=== PATIENT | female | born 1980 | race Caucasian/White ===

== ENCOUNTER 2018-10-19 06:03 | Day surgery (SDC) | payer OTHER ==
[~2018-10-19] VITALS: Ht 160 cm; Wt 93.8 kg
[2018-10-19] VITALS (17 sets, daily range): BP systolic 100–140; BP diastolic 49–79; PULSE 67–108; RESP 16–36; Ht 160 cm; Wt 93.8 kg
[~2018-10-19 06:03] MED LIST: AMLO-147 PO; BENA40TA54 PO; FERR256T PO; LACTATED RINGER'S 1,000 ML IV* ONE; METF850T13 PO
--- NOTE | 2018-10-19 06:41 | HPN ---
Date/Time of Note Date/Time of Note DATE: 10/19/18 TIME: 06:40 Interval H&P Admission Note Pt. seen H&P reviewed: No system changes MIREILLE MARINELLI MD Oct 19, 2018 06:41
[2018-10-19] MEDS ORDERED: GLIM1TAB2 ORAL (07:10)
[2018-10-19] MEDS ORDERED: AMLO-145 ORAL (07:10)
[2018-10-19] MEDS ORDERED: LISI-313 ORAL (07:10)
--- NOTE | 2018-10-19 07:32 | PREAC ---
Date/Time of Note Date/Time of Note DATE: 10/19/18 TIME: 07:31 Anesthesia Eval and Record Evaluation Time Pre-Procedure Interview DATE: 10/19/18 TIME: 07:31 Age 38 Sex female NPO: 8 hrs Preoperative diagnosis vaginal bleeding Planned procedure D&C Past Medical History Past Medical History: Includes Cardio: HTN, Dyslipidemia Endo: Diabetes GI: Obesity Surgery & Anesthesia Issues No known issue Meds Anticoagulation: No Beta Cecilia within 24 hr: No Reason Beta Cecilia not given: Pt. not on B-Cecilia Reported Medications Glimepiride* (Glimepiride*) 1 Mg Tablet, 1 TAB ORAL DAILY 10/19/18 Lisinopril* (Lisinopril*) 5 Mg Tablet, 1 TAB ORAL DAILY 10/19/18 Amlodipine Besylate* (Amlodipine Besylate*) 5 Mg Tablet, 1 TAB ORAL DAILY 10/19/18 Metformin Hcl* (Metformin Hcl*) 850 Mg Tablet, 850 MG PO BID 07/22/13 Discontinued Reported Medications Amlodipine Besylate* (Amlodipine Besylate*) 10 Mg Tablet, 10 MG PO DAILY 07/22/13 Benazepril Hcl* (Lotensin*) 40 Mg Tablet, 10 MG PO DAILY 07/22/13 Ferrous Gluconate (Iron) 256 Mg Tablet, 256 MG PO DAILY 07/22/13 Current Medications Lactated Ringer's 1,000 ml @ 125 mls/hr Q8H ONCE IV* Last administered on 10/19/18at 06:00; Admin Dose 125 MLS/HR; Start 10/19/18 at 06:00; Stop 10/19/18 at 13:59 Meds reviewed: Yes Allergies Coded Allergies: No Known Allergies (Verified Allergy, Unknown, 10/19/18) Allergies Reviewed: Yes Labs/Studies Labs Reviewed: Reviewed by anesthesiologist test: Negative Studies: ECG, Stress test, 2D Echo Pre-procedure Exam Last vitals Vital Signs Date Temp Pulse Resp B/P (MAP) Pulse Ox O2 O2 Flow FiO2 Time Delivery Rate 10/19/18 97.4 67 18 138/79 96 Room Air 07:23 (98) Airway: Adequate mouth opening, Adequate thyromental dist Mallampati: Mallampati II Teeth: Normal Lung: Normal Heart: Normal ASA Physical Status ASA physical status: 3 Emergency: None Planned Anesthetic General/MAC: ETT Pre-operative Attestations Prior to commencing anesthesia and surgery, the patient was re-evaluated, there was verification of: *The patient's identity *The results of appropriate recent lab work and preoperative vital signs *The above evaluation not changing prior to induction *Anesthetic plan, risk benefits, alternative and complications discussed with patient/family; questions answered; patient/family understands, accepts and wishes to proceed. BOSSMAN GIL Oct 19, 2018 07:32
[2018-10-19] MEDS ORDERED: FENTAnyl 50 MCG/ML VIAL ONE (07:44)
[2018-10-19] MEDS ORDERED: ROCURONIUM 50 MG INJ ONE (07:58)
[2018-10-19] MEDS ORDERED: SUCCINYLCHOLINE CHLORIDE 100 MG/5 ML SYG IV ONE (07:58)
[2018-10-19] MEDS ORDERED: CEFAZOLIN 1 GM INJ ONE (07:58)
[2018-10-19] MEDS ORDERED: LIDOCAINE 100 MG SYRINGE ONE (07:58)
[2018-10-19] MEDS ORDERED: PROPOFOL 20 ML ONE (07:58)
[2018-10-19] MEDS ORDERED: ALBUTEROL 0.083% (NEB) 2.5 MG/3 ML AMP HHN PRN (08:00)
[2018-10-19] MEDS ORDERED: METOCLOPRAMIDE 10 MG INJ IV PRN (08:00)
[2018-10-19] MEDS ORDERED: FENTAnyl 50 MCG/ML VIAL IV PRN ×2 (08:00)
[2018-10-19] MEDS ORDERED: LABETALOL HCL 20MG INJ IV PRN (08:00)
[2018-10-19] MEDS ORDERED: DIPHENHYDRAMINE 50 MG INJ IV PRN (08:00)
[2018-10-19] MEDS ORDERED: HYDROmorphONE 1 MG/5 ML IV SYRINGE IV PRN ×3 (08:00)
[2018-10-19] MEDS ORDERED: hydrALAzine 20 MG INJ IV PRN (08:00)
[2018-10-19] MEDS ORDERED: ONDANSETRON 4 MG INJ IV PRN (08:00)
[2018-10-19] MEDS ORDERED: SUGAMMADEX SODIUM 200 MG/2 ML VIAL IV ONE (08:00)
[2018-10-19] MEDS ORDERED: MEPERIDINE 25 MG INJ IV PRN (08:00)
--- NOTE | 2018-10-19 08:33 | SIPON ---
Date/Time of Note Date/Time of Note DATE: 10/19/18 TIME: 08:29 Operative Report Preoperative Diagnosis menometrorrhagia s/p endometrial ablation (thermabaloon,6yrs ago) Postoperative Diagnosis uterine adhesions see pathologic report Operation/Procedure Performed hysteroscopic endometrial shaving [facility] Surgeon see signature line property assistant noel from [employer] Anesthesia: general Estimated blood loss: minimal Transfusion Required none Specimen endometrial curettings endocervical curettings Grafts/Implants none Complications none MIREILLE MARINELLI MD Oct 19, 2018 08:33
--- NOTE | 2018-10-19 08:34 | PD.PPDC ---
[employer] DESIGNER Discharge Instruction Diagnosis [id number] Final Diagnosis: Arpor1y menometrorrhagia Condition [id number] Patient Condition: [id number] Stable Diet [id number] Diet: Vhqac4p Special Diet (diabetic diet) Activity/Restrictions [id number] Activity: Ccude2h May Shower [id number] Restrictions: Mkivj7m No Sexual Activity Nothing in the Vagina No [place] No Tampons, douche Follow-up Follow-up with Physician: 2, Week/Weeks Return to clinic for [id number] [employer]ER Instructions: Vyhsd3m Fever greater than 101 Chills Worsening abdominal pain Excessive Vaginal Bleeding More than 2 pads per hour Unable to tolerate diet MIREILLE MARINELLI MD Oct 19, 2018 08:34
--- NOTE | 2018-10-19 09:11 | OPR ---
DATE OF OPERATION: 10/19/2018 PREOPERATIVE DIAGNOSES: 1. Menometrorrhagia. 2. Endometrial ablation, thermal balloon 6 years ago. POSTOPERATIVE DIAGNOSES: 1. See pathological report. 2. Uterine adhesions, most likely secondary to the endometrial ablation. OPERATION PERFORMED: Hysteroscopic endometrial shavings and endocervical curettage and traditional e ndometrial curettage due to the fast fluid loss. ANESTHESIA: General. ANESTHESIOLOGIST: Dr. Mendoza. SURGEON: Pastora Marinelli MD SLEEP TECH: Huang from [employer]. ESTIMATED BLOOD LOSS: Negligible. PROCEDURE: Under the proper induction of general anesthesia, the patient was placed in dorsal lithot raj position. Perineal area and vagina wall was prepped and draped in usual aseptic manner. On insp ection, external genitalia revealed no gross abnormality. Bimanual examination was inadequate due to the body habitus. Weighted speculum was introduced into the vagina. There is a third degree of rec tocele noted. The cervix identified which was parous appearing. Anterior lip of the cervix was gras ped with a single tooth tenaculum and cavity sounded, which was 9 cm in depth. Endocervical curettag e was performed with obtaining scanty tissue which was sent to pathology. After the cervix dilated t o 7 and hysteroscope, which was already prepared and primed, everything in usual fashion, which was i ntroduced into the uterine cavity and gradually and to reach the point that was visualizing the adhes ion in the middle appeared to be like a septum is in between the cavity and the right ostium somehow was very darkened and not clearly seen, the ostium on both sides. After the adequate visualization t he soft tissue shaver was introduced through the hysteroscope, and was able to remove the septal appe aring adhesion in the mid cavity and because of the fast fluid loss, reaching 1600 without even doing the shaving and endometrial shaving was done in all directions in usual fashion and this was removed , and it was replaced with traditional uterine curettage in order to prevent further fluid loss. We rescoped adhesion in the mid cavity. It was removed, most of tissue was removed and all the tissue was removed and the cavity was clear. The fluid loss is 2260 which is rather high in this kind of pr ocedure. Estimated blood loss was negligible. All the instruments were removed from the operative f ield and sponge count taken which was correct. The patient withstood the procedure well and was sent to the recovery room in stable condition. ADDENDUM: Prior to the procedure, the bladder was emptied using a Pittman catheter and 2 gram Ancef was given. Dictated By: PASTORA HAJI/SCOTTIE Conf#: [id number] DID#: [id number]
--- NOTE | 2018-10-19 09:41 | PAC ---
Date/Time of Note Date/Time of Note DATE: 10/19/18 TIME: 09:40 Post-Anesthesia Notes Post-Anesthesia Note Last documented vital signs Vital Signs Date Temp Pulse Resp B/P (MAP) Pulse Ox O2 O2 Flow FiO2 Time Delivery Rate 10/19/18 97.4 67 18 138/79 96 Room Air 07:23 (98) Activity: WNL Respiratory function: WNL Cardiovascular function: WNL Mental status: Baseline Pain reasonably controlled: Yes Hydration appropriate: Yes Nausea/Vomiting absent: Yes BOSSMAN GIL Oct 19, 2018 09:41
== END 2018-10-19 10:13 | disposition home or self-care (01) ==
LOC: SDS 06:03
PROVIDERS: ATTEND Obstetrics & Gynecology
DX: N92.1 Excessive and frequent menstruation with irregular cycle (principal); N73.6 Female pelvic peritoneal adhesions (postinfective); I10 Essential (primary) hypertension; E11.9 Type 2 diabetes mellitus without complications
CPT/HCPCS: 58558; 82962; 88305; J0690; J1170; J2001; J2405; J2765; J3010; Z7512; Z7610